=== PATIENT | male | born 1960 | race Caucasian/White ===

== ENCOUNTER → 2019-05-05 | Outpatient (CLI) | payer OTHER ==
[2019-05-05 14:55] LABS: BASO # 0.1 x10^3/uL (0.0-0.2); BASO % 1 % (0-3); EOS # 0.2 x10^3/uL (0.0-0.7); EOS % 3 % (0-3); LYMPH # 1.9 x10^3/uL (1.0-4.8); LYMPH % 22 % (24-48); MEAN CORPUSCULAR HEMOGLOBIN 31 pg (25-35); MEAN CORPUSCULAR HGB CONC 34 g/dL (31-37); MEAN CORPUSCULAR VOLUME 90 fL (79-100); MONO # 0.7 x10^3/uL (0.0-1.1); MONO % 9 % (0-9); NEUT # 5.6 x10^3uL (1.8-7.7); NEUT % 65 % (31-73); PLATELET COUNT 307 x10^3/uL (140-400); RED BLOOD COUNT 4.91 x10^6/uL (4.30-5.70); RED CELL DISTRIBUTION WIDTH 13.2 % (11.5-14.5); WHITE BLOOD COUNT 8.5 x10^3/uL (4.0-11.0)
[2019-05-05 15:06] LABS: ALBUMIN 3.6 g/dL (3.4-5.0); CALCIUM 8.7 mg/dL (8.5-10.1); GFR 76.5; POTASSIUM 3.8 mmol/L (3.5-5.1); TOTAL BILIRUBIN 1.4 mg/dL (0.2-1.0); TOTAL PROTEIN 7.1 g/dL (6.4-8.2)
[2019-05-06 11:28] LABS: THYROID STIM HORMONE (TSH) 0.645 uIU/mL (0.358-3.740)
== END | disposition home or self-care (01) ==
LOC: LAB 14:10
PROVIDERS: ATTEND Family Medicine
DX: Z13.220 Encounter for screening for lipoid disorders (principal)
CPT/HCPCS: 36415; 80053; 80061; 84443; 85025

== ENCOUNTER → 2019-07-28 | Outpatient (CLI) | payer OTHER ==
--- NOTE | 2019-07-28 11:11 | RAD ---
CT ABDOMEN PELVIS WO CONTRAST History: Right flank pain. Technique: Noncontrast examination of the abdomen and pelvis. Coronal and sagittal reconstructions were performed. Exposure: One or more of the following individualized dose reduction techniques were utilized for this examination: 1. Automated exposure control 2. Adjustment of the mA and/or kV according to patient size 3. Use of iterative reconstruction technique. Comparison: None Findings: Lower chest: No consolidation or pleural effusion. Abdomen and pelvis: The liver, spleen, adrenal, pancreas and gallbladder are unremarkable. Small hypoattenuating focus within the right superior kidney, too small to further characterize. No hydronephrosis. No renal, ureteral or urinary bladder stones. Enlarged prostate measures 5.0 x 3.37 m. Extensive sigmoid colonic diverticulosis. Appendix not well seen. No evidence of bowel obstruction. No pathologic lymphadenopathy. No ascites. Bones: No pathologic osseous lesions. Impression: 1. No acute abdominal or pelvic pathology. No obstructing urolithiasis. 2. Colonic diverticulosis. Electronically signed by: Jam Flores DO (07/28/2019 11:08 AM) [id number]
== END ==
LOC: PMG 10:38
PROVIDERS: ATTEND Family Medicine
DX: K57.30 Diverticulosis of large intestine without perforation or abscess without bleeding (principal); N40.0 Benign prostatic hyperplasia without lower urinary tract symptoms
CPT/HCPCS: 74176

== ENCOUNTER 2019-11-18 06:51 | Emergency (ER) | payer OTHER ==
[~2019-11-18] VITALS: Ht 180.3 cm; Wt 72.7 kg
--- NOTE | 2019-11-18 07:11 | PHYS DOC ---
Adult General Chief Complaint Chief Complaint: ABDOMINAL PAIN HPI HPI Patient is a 59-year-old male who presents for abdominal pain. Onset was 3 hours ago and awoke him from sleep. Nothing known makes better, he has not taken anything to try and alleviate the pain. Body movements and palpation make worse. Pain described as sharp, focal to left lower quadrant without radiation and 9/10 in severity during episodes. Pain has been intermittent since onset, patient currently presents with 0 out of 10 pain to ER but several episodes of cyclic abdominal pain concerned him prompting him to arrival to our ER for evaluation. Patient has had recent CT abdomen pelvis performed July 2019 for flank pain, no gross abnormalities noted at that time but colonic diverticulosis was found. Associated symptoms with abdominal pain today include nausea and constipation for the last 2 days which is unusual for him. Patient denies fever, chills, headache, shortness of breath, chest pain, vomit, diarrhea, urinary symptoms, concerning ingestions or travel. Review of Systems Review of Systems Fourteen body systems of review of systems have been reviewed. See HPI for perti nent positives and negative responses, other landa all other systems are negative, non-pertinent or non-contributory Allergies Allergies Allergies Coded Allergies Type Severity Reaction Last Updated Verified No Known Drug Allergies 11/18/19 No Physical Exam Physical Exam Constitutional: Well developed, well nourished, no acute distress, non-toxic appearance. HENT: Normocephalic, atraumatic, bilateral external ears normal, oropharynx moist, no oral exudates, nose normal. Eyes: PERRLA, EOMI, conjunctiva normal, no discharge. Neck: Normal range of motion, no tenderness, supple, no stridor. Cardiovascular: Heart rate regular, sinus rhythm, no murmurs rubs or gallops Lungs & Thorax: Bilateral breath sounds clear to auscultation Abdomen: Bowel sounds normal, soft, mild tenderness to left lower quadrant, voluntary guarding present, no rebound, no masses, no pulsatile masses. Nonsurgical abdomen, no peritoneal signs, negative heel strike Skin: Warm, dry, no erythema, no rash. Back: No tenderness, no CVA tenderness. Extremities: No tenderness, no cyanosis, no clubbing, ROM intact, no edema. Neurologic: Alert and oriented X 3, grossly normal motor & sensory function, no focal deficits noted. Psychologic: Affect normal, judgement normal, mood normal. Current Patient Data Vital Signs Vital Signs Date Time Temp Pulse Resp B/P (MAP) Pulse Ox O2 Delivery O2 Flow Rate FiO2 11/18/19 07:29 97.5 51 20 157/56 (89) 98 Lab Results Laboratory Tests Test 11/18/19 07:23 Sodium Level 144 mmol/L (136-145) Potassium Level 4.6 mmol/L (3.5-5.1) Chloride Level 108 mmol/L (98-107) Carbon Dioxide Level 31 mmol/L (21-32) Anion Gap 5 (6-14) Blood Urea Nitrogen 15 mg/dL (8-26) Creatinine 1.1 mg/dL (0.7-1.3) Estimated GFR (Cockcroft-Gault) 68.3 Glucose Level 115 mg/dL (70-99) Calcium Level 8.8 mg/dL (8.5-10.1) Troponin I Quantitative < 0.017 ng/mL (0-0.055) Lipase 271 U/L (73-393) EKG EKG EKG ordered and interpreted by myself at 0720 hrs. as sinus bradycardia at 45 bpm, unremarkable intervals, no axis deviation, T wave inversion in lead aVR, no STEMI. No prior EKGs to compare to Radiology/Procedures Radiology/Procedures PROCEDURE: CT ABD PELV W/ IV CONTRST ONLY Examination: CT of the abdomen pelvis with IV contrast HISTORY: History of left lower quadrant abdominal pain COMPARISON: None TECHNIQUE: Axial CT images of the abdomen is performed with IV contrast. Coronal and sagittal reformats are performed Exposure: One or more of the following individualized dose reduction techniques were utilized for this examination: 1. Automated exposure control 2. Adjustment of the mA and/or kV according to patient size 3. Use of iterative reconstruction technique FINDINGS: The bibasilar lungs are clear. No evidence of free air identified in the abdomen. The liver, adrenals grossly appears unremarkable. Calcified splenic granulomas identified. The gallbladder is mildly distended. Stomach is mildly distended. The visualized pancreas grossly appears unremarkable. The small bowel is nondilated. Feces and gas noted in the colon. There is moderate thickened appearance of the wall of the sigmoid colon with surrounding inflammatory fat stranding. Urinary bladder is mildly distended. The bilateral kidneys enhance symmetrically. Subcentimeter cyst identified in the bilateral kidneys. There is small subcentimeter fatty density identified in the right kidney could be a small angiomyolipoma. No evidence of lytic bony destructive lesion. IMPRESSION: 1. Moderate thickened appearance of the wall of the sigmoid colon with surrounding inflammatory fat stranding likely colitis. Underlying mucosal pathology such as neoplasm is not completely excluded. Electronically signed by: Familai Webster MD (11/18/2019 8:10 AM) [id number]] Course & Med Decision Making Course & Med Decision Making ABCs remarkable for initial asymptomatic bradycardia only Comprehensive history and physical exam obtained, subsequent diagnostic studies ordered IV access obtained, 1 L normal saline administered Patient remained asymptomatic throughout ER visit Discussed findings on physical exam and diagnostic work-up, discussed findings suggestive of colitis in patient with known diverticulosis in descending colon who is been afebrile without white count Also discussed radiologist read that neoplasm could not be excluded, patient has not had colonoscopy, advised patient to follow-up with PCP to have this scheduled after resolution of acute disease Ultimately, joint decision to discharge home with OTC bismuth subsalicylate use and new prescription for ciprofloxacin to cover for infectious colitis Strict return precautions discussed with good understanding by patient, all questions and concerns addressed prior to discharge home in stable condition Patient to call PCP first thing Wednesday morning to schedule outpatient follow-up Dragon Disclaimer Dragon Disclaimer This electronic medical record was generated, in whole or in part, using a voice recognition dictation system. Departure Departure: Impression: Primary Impression: Colitis Disposition: 01 HOME/RESIDENCE PRIOR TO ADM Condition: STABLE Referrals: LAURA VIRK MD (PCP) Patient Instructions: Colitis Additional Instructions: You have been evaluated in the Emergency Department today for abdominal pain. Your evaluation showed findings of colitis, and infection of your bowel. You have been prescribed antibiotics for this and close follow-up for colonoscopy. Please take [id number] bismuth subsalicylate for your abdominal cramping. However, some abdominal problems make take more time to appear. Therefore, it is important for you to watch for any new symptoms or worsening of your current condition. Please follow-up with your PCP in upcoming 1 to 7 days for outpatient follow-up Return to the Emergency Department if you experience worsening pain, persistent fevers greater than 100.4, recurrent vomiting, blood in vomit, blood in stool, dark tarry stool, chest pain, difficulty breathing, or any other concerning symptoms. Scripts Ciprofloxacin (CIPRO) 500 Mg/5 Ml [facility].rec 500 MG PO BID for Colitis for 7 Days, MISC Prov: SERENITY RENEE DO 11/18/19 Justification of Admission: Justification of Admission: Justification of Admission Dx: N/A SERENITY RENEE DO Nov 18, 2019 07:11
[2019-11-18] MEDS ORDERED: CONTRAST GIVEN. MC PRN (07:15)
[2019-11-18] MEDS ORDERED: IOHEXOL 300 MG/ML 75 ML VIAL. IV ONE (07:15)
[2019-11-18] MEDS ORDERED: IV NORMAL SALINE 1,000ML 1,000 ML IV ONE (07:15)
[2019-11-18 07:29] VITALS: BP 157/56
[2019-11-18 07:50] LABS: CALCIUM 8.8 mg/dL (8.5-10.1); CREATININE 1.1 mg/dL (0.7-1.3); GFR 68.3; POTASSIUM 4.6 mmol/L (3.5-5.1)
--- NOTE | 2019-11-18 08:13 | RAD ---
Examination: CT of the abdomen pelvis with IV contrast HISTORY: History of left lower quadrant abdominal pain COMPARISON: None TECHNIQUE: Axial CT images of the abdomen is performed with IV contrast. Coronal and sagittal reformats are performed Exposure: One or more of the following individualized dose reduction techniques were utilized for this examination: 1. Automated exposure control 2. Adjustment of the mA and/or kV according to patient size 3. Use of iterative reconstruction technique FINDINGS: The bibasilar lungs are clear. No evidence of free air identified in the abdomen. The liver, adrenals grossly appears unremarkable. Calcified splenic granulomas identified. The gallbladder is mildly distended. Stomach is mildly distended. The visualized pancreas grossly appears unremarkable. The small bowel is nondilated. Feces and gas noted in the colon. There is moderate thickened appearance of the wall of the sigmoid colon with surrounding inflammatory fat stranding. Urinary bladder is mildly distended. The bilateral kidneys enhance symmetrically. Subcentimeter cyst identified in the bilateral kidneys. There is small subcentimeter fatty density identified in the right kidney could be a small angiomyolipoma. No evidence of lytic bony destructive lesion. IMPRESSION: 1. Moderate thickened appearance of the wall of the sigmoid colon with surrounding inflammatory fat stranding likely colitis. Underlying mucosal pathology such as neoplasm is not completely excluded. Electronically signed by: Familia Webster MD (11/18/2019 8:10 AM) [id number]
[2019-11-18 08:25] LABS: BASO # 0.1 x10^3/uL (0.0-0.2); BASO % 1 % (0-3); EOS # 0.2 x10^3/uL (0.0-0.7); EOS % 2 % (0-3); HEMATOCRIT 45.9 % (39.0-53.0); HEMOGLOBIN 15.4 g/dL (13.0-17.5); LYMPH # 1.1 x10^3/uL (1.0-4.8); LYMPH % 12 % (24-48); MEAN CORPUSCULAR HEMOGLOBIN 31 pg (25-35); MEAN CORPUSCULAR HGB CONC 34 g/dL (31-37); MEAN CORPUSCULAR VOLUME 92 fL (79-100); MONO # 0.7 x10^3/uL (0.0-1.1); MONO % 7 % (0-9); NEUT # 6.8 x10^3uL (1.8-7.7); NEUT % 78 % (31-73); PLATELET COUNT 280 x10^3/uL (140-400); RED BLOOD COUNT 5.01 x10^6/uL (4.30-5.70); RED CELL DISTRIBUTION WIDTH 13.1 % (11.5-14.5); WHITE BLOOD COUNT 8.8 x10^3/uL (4.0-11.0)
[2019-11-18] MEDS ORDERED: CIPR500S2 PO (08:48)
--- NOTE | 2019-11-18 11:36 | EKG ---
[facility] ED [facility] [address] [place] [id number] Test Date: 2019-11-18 Test Time: 07:15:51 Pat Name: LJ BASS Department: Room: Gender: M Duct Maker: : 1960 Requested By: SERENITY RENEE Order Number: [id number] Reading MD: Measurements Intervals [place] Rate: 45 P: 90 WY: 186 QRS: 62 QRSD: 118 T: 76 QT: 456 QTc: 397 Interpretive Statements SINUS BRADYCARDIA T ABNORMALITY IN HIGH LATERAL LEADS ABNORMAL ECG RI6.02 No previous ECG available for comparison
== END 2019-11-18 09:19 | disposition home or self-care (01) ==
LOC: ER 06:51
DX: K52.9 Noninfective gastroenteritis and colitis, unspecified (principal)
CPT/HCPCS: 36415; 74177; 80048; 83690; 84484; 85025; 93005; 96360; 96361; 99285; J7030; Q9967

== ENCOUNTER → 2021-01-31 | Outpatient (CLI) | payer OTHER ==
[~2021-01-31] MED LIST: CIPR500S2 PO
--- NOTE | 2021-01-31 17:24 | RAD ---
Exam Date: 01/31/2021 8:47 AM DG SMALL BOWEL FOLLOW THROUGH Indication: Reason: RIGHT SIDED ABDOMINAL PAIN X 2 YRS / Spl. Instructions: HX: APPENDECTOMY, SEV. PO LYPS REMOVED DURING COLONOSCOPY / History: . 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 A barium small bowel follow-through was performed. Multiple overhead radiographs were obtained of the small bowel including the terminal ileum. FINDINGS: Lighter Captain film demonstrates a nondilated, nonobstructed bowel gas pattern. The duodenal sweep appears normal. The small bowel folds appear normal without mass, strictures or d iverticula. IMPRESSION: Normal appearance of the small bowel. Total fluoroscopy time: 0 seconds Fluoroscopic images: 0 Electronically signed by: Amadou Garcia MD (01/31/2021 5:22 PM) [id number]
== END ==
LOC: RAD 08:20
PROVIDERS: ATTEND Internal Medicine Gastroenterology
DX: R10.31 Right lower quadrant pain (principal)
CPT/HCPCS: 74250

== ENCOUNTER → 2021-04-23 | Outpatient (CLI) | payer OTHER | LOC: LAB 07:49 | PROVIDERS: ATTEND Internal Medicine | DX: U07.1 COVID-19 (principal) | CPT/HCPCS: U0003 ==